=== PATIENT | female | born 1960 | race Caucasian/White ===

== ENCOUNTER 2020-10-13 21:55 | Emergency (ER) | payer MEDICARE, MEDICAID, SELFPAY ==
[2020-10-13 22:07] VITALS: BP 131/77; PULSE 84; RESP 16; TEMP 36.7; O2SAT 95; BMI 30.9
[2020-10-13 22:48] LABS: Glucose Urine UA NEG (NEG); Leukocyte Esterase Urine 1+ (NEG); Nitrite Urine NEG (NEG); PH 5.5 (5.0-8.0); Specific Gravity - Urine 1.025 (1.005-1.025); Urine Blood 1+ (NEG); Urine Ketones NEG (NEG); Urine Protein TRACE MG/DL (NEG-TRACE)
--- NOTE | 2020-10-13 22:49 | ED.NEUROSD ---
HPI - Neuro Symptoms/Deficit General Chief Complaint: Neuro Symptoms/Deficit Stated Complaint: seizures Time Seen by Provider: 10/13/20 22:34 Source: family (Brother) Mode of arrival: EMS History of Present Illness HPI Narrative: This is a 60-year-old female with cognitive delays and a seizure disorder, she has not had any recent changes in her medications or infections as per the brother who is at bedside. He states that earlier today she had a 10 minutes grand mal seizure and this gradually resolved and then EN route to the hospital he states she had a focal seizure which lasted about 2-3 minutes. He states that her recent history was a fall on Tuesday at which time she dislocated the left pinky finger which was reduced at [employer] [facility]. Related Data Allergies Allergy/AdvReac Type Severity Reaction Status Date / Time No Known Allergies Allergy Verified 10/13/20 22:22 [No Known Allergies*] Review of Systems Review of Systems: Pertinent positives and negatives as stated in HPI 10 point review systems is otherwise negative. PMFSH Past Medical History Source: nursing notes reviewed Medical History Seizures Social History Social History Advance Directives: No Advance Directives Information Provided: Yes Physical Exam Vital Signs: Vital Signs: Last Vital Signs Temp 98.0 F 10/13/20 22:07 Pulse 84 10/13/20 22:07 Resp 16 10/13/20 22:07 BP 131/77 10/13/20 22:07 Pulse Ox 95 10/13/20 22:07 Body Mass Index 30.9 VITAL SIGNS: Reviewed. GENERAL: Well developed, well nourished, in no acute distress. HEAD: Normocephalic/atraumatic, EYES: PERRLA, EOMI intact without pain, no nystagmus/pallor/icterus noted EARS: Ext canals without abnormality, TMs non-bulging and non-erythematous NOSE: Nares patent bilateral OROPHARYNX: no oral lesions noted, posterior pharynx clear, no oral/10 lacerations NECK: Supple, no adenopathy LUNGS: Normal breath sounds. No adventitious sounds or accessory muscle use. SpO2<95> CARDIOVASCULAR: Regular rate and rhythm without noted murmurs, no JVD or lower extremity edema. ABDOMEN: Soft, non-tender, non-distended with bowel sounds. No rigidity. No guarding. No palpable masses or hernias noted LEFT PINKY FINGER: Mildly bruised NEUROLOGIC: Alert and oriented x2 (this is baseline) Course Course Course Narrative: This is a 60-year-old female with history and clinical presentation consistent with breakthrough seizure and will evaluate for infectious, metabolic etiologies, but patient is currently at baseline as her brother. Review of all investigations all without any acute findings, 1+ leukocyte esterase noted in the urine is felt to be secondary to the mild blood noted. Patient has remained hemodynamically stable and without any seizure-like activity while here in the emergency department. All results and findings were discussed with patient's brother at bedside and he is comfortable with taking the patient home with follow-up in the morning regarding possible adjustments of medications/re-evaluation by Neurology. MDM - Neuro Symptoms/Deficit Lab Data Result diagrams: 10/14/20 00:18 10/14/20 00:18 Labs: Lab Results 10/13/20 10/13/20 10/14/20 Range/Units 22:38 22:38 00:18 WBC 7.4 (4.8-10.8) X10*3/uL RBC 4.54 (4.20-5.50) X10*6/uL Hgb 14.0 (12.0-16.0) g/dl Hct 41.5 (37-47) % MCV 91.4 (80-98) fL MCH 30.8 (27.0-33.0) pg MCHC 33.7 (31.0-35.0) g/dl RDW 12.7 (11.0-16.0) % Plt Count 210 (160-400) X10*3/uL MPV 9.4 (9.4-12.3) fL Immature Gran % (Auto) 0.5 H (0.0-0.4) % Neut % (Auto) 70.3 (45-73) % Lymph % (Auto) 18.9 L (20-40) % Sumner % (Auto) 8.5 (2-11) % Eos % (Auto) 1.4 (0-4) % Baso % (Auto) 0.4 (0-2) % Lymph # (Auto) 1.4 (1.2-4.9) X10*3/uL Sumner # (Auto) 0.6 (0.1-1.2) X10*3/uL Eos # (Auto) 0.1 (0.0-0.4) X10*3/uL Baso # (Auto) 0.0 (0.0-0.2) X10*3/uL Abs Immat Gran (auto) 0.04 H (0.00-0.03) X10*3/uL Absolute Neuts (auto) 5.2 (2.0-8.3) X10*3/uL Absolute Nucleated RBC 0.000 (0.0-0.012) X10*3/uL Nucleated RBC % (auto) 0.0 (0.0-0.2) /100WBC Sodium (135-145) mmol/L Potassium (3.3-5.1) mmol/l Chloride (96-108) mmol/L Carbon Dioxide (22-29) mmol/L Anion Gap (12-20) BUN (9-16) mg/dL Creatinine (0.5-1.4) mg/dL Estim Creat Clear Calc Estimated GFR Random Glucose (60-115) mg/dL Calcium (8.4-10.2) mg/dL Total Bilirubin (0.0-1.0) mg/dL AST (5-31) U/L ALT (0-31) U/L Alkaline Phosphatase (39-117) U/L Total Protein (6.5-8.0) g/dL Albumin (3.5-5.0) g/dL Urine Color YELLOW Urine Appearance CLEAR Urine pH 5.5 (5.0-8.0) Ur Specific [place] 1.025 (1.005-1.025) Urine Protein TRACE (NEG-TRACE) MG/DL Urine Glucose (UA) NEG (NEG) MG/DL Urine Ketones NEG (NEG) MG/DL Urine Blood 1+ H (NEG) Urine Nitrite NEG (NEG) Ur Leukocyte Esterase 1+ H (NEG) Urine RBC 1-4 (0) /HPF Urine WBC 1-4 (0-4) /HPF Ur Squamous Epith Cells 1+ /LPF Urine Bacteria 1+ /LPF Urine Opiates Screen Not Detected (Not Detect) Ur Barbiturates Screen Not Detected (Not Detect) Ur Phencyclidine Scrn Not Detected (Not Detect) Ur Amphetamines Screen Not Detected (Not Detect) U Benzodiazepines Scrn POSITIVE H (Not Detect) Urine Cocaine Screen Not Detected (Not Detect) U Marijuana (THC) Screen Not Detected (Not Detect) 10/14/20 Range/Units 00:18 WBC (4.8-10.8) X10*3/uL RBC (4.20-5.50) X10*6/uL Hgb (12.0-16.0) g/dl Hct (37-47) % MCV (80-98) fL MCH (27.0-33.0) pg MCHC (31.0-35.0) g/dl RDW (11.0-16.0) % Plt Count (160-400) X10*3/uL MPV (9.4-12.3) fL Immature Gran % (Auto) (0.0-0.4) % Neut % (Auto) (45-73) % Lymph % (Auto) (20-40) % Sumner % (Auto) (2-11) % Eos % (Auto) (0-4) % Baso % (Auto) (0-2) % Lymph # (Auto) (1.2-4.9) X10*3/uL Sumner # (Auto) (0.1-1.2) X10*3/uL Eos # (Auto) (0.0-0.4) X10*3/uL Baso # (Auto) (0.0-0.2) X10*3/uL Abs Immat Gran (auto) (0.00-0.03) X10*3/uL Absolute Neuts (auto) (2.0-8.3) X10*3/uL Absolute Nucleated RBC (0.0-0.012) X10*3/uL Nucleated RBC % (auto) (0.0-0.2) /100WBC Sodium 140 (135-145) mmol/L Potassium 4.2 (3.3-5.1) mmol/l Chloride 106 (96-108) mmol/L Carbon Dioxide 27 (22-29) mmol/L Anion Gap 11 L (12-20) BUN 12 (9-16) mg/dL Creatinine 0.81 (0.5-1.4) mg/dL Estim Creat Clear Calc 83.1 Estimated GFR > 60 Random Glucose 108 (60-115) mg/dL Calcium 8.8 (8.4-10.2) mg/dL Total Bilirubin 0.2 (0.0-1.0) mg/dL AST 24 (5-31) U/L ALT 23 (0-31) U/L Alkaline Phosphatase 85 (39-117) U/L Total Protein 6.7 (6.5-8.0) g/dL Albumin 4.5 (3.5-5.0) g/dL Urine Color Urine Appearance Urine pH (5.0-8.0) Ur Specific [place] (1.005-1.025) Urine Protein (NEG-TRACE) MG/DL Urine Glucose (UA) (NEG) MG/DL Urine Ketones (NEG) MG/DL Urine Blood (NEG) Urine Nitrite (NEG) Ur Leukocyte Esterase (NEG) Urine RBC (0) /HPF Urine WBC (0-4) /HPF Ur Squamous Epith Cells /LPF Urine Bacteria /LPF Urine Opiates Screen (Not Detect) Ur Barbiturates Screen (Not Detect) Ur Phencyclidine Scrn (Not Detect) Ur Amphetamines Screen (Not Detect) U Benzodiazepines Scrn (Not Detect) Urine Cocaine Screen (Not Detect) U Marijuana (THC) Screen (Not Detect) Discharge Plan Discharge Clinical Impression: Seizure Patient Disposition: Home, Self-Care Instructions: Nonepileptic Seizures (ED) Additional Instructions: Resume all home medications as prescribed. Follow-up with your primary care provider/urologist by calling the office in the morning for re-evaluation. The patient and/or family acknowledge understanding of results (as applicable), diagnosis, treatment plan, need for follow up, and symptoms that should prompt a return to the emergency room. Referrals: Physician,Unknown [Primary Care Provider] - 2 days (Re-evaluation and outpatient management seizures.)
[2020-10-13 22:50] LABS: Appearance Urine CLEAR; Color Urine YELLOW
--- NOTE | 2020-10-13 22:51 | XR_ITS ---
EXAMINATION: XR FINGER, LEFT CLINICAL INFORMATION: Fifth digit dislocation COMPARISON: None TECHNIQUE: 3 views of the left fifth finger. FINDINGS: There is a splint of the left fifth finger. There is no fracture. There is no dislocation. XR/XR finger LT min 2V IMPRESSION: No acute osseous abnormality of the fifth finger.
[2020-10-13 22:57] LABS: Bacteria Urine 1+ /LPF; Squamous Epithelial Cell Urine 1+ /LPF
[2020-10-13 23:25] LABS: Amphetamine Screen Urine Not Detected (Not Detect); Barbiturates, Urine Not Detected (Not Detect); Benzodiazepines Screen Urine POSITIVE (Not Detect); Cannabinoid Screen Urine Not Detected (Not Detect); Cocaine Screen Urine Not Detected (Not Detect); Opiate Screen Urine Not Detected (Not Detect); Phencyclidine Screen Urine Not Detected (Not Detect)
[2020-10-14 00:24] LABS: MANUAL DIFF FLAG NO
[2020-10-14 00:25] LABS: Basophils Percent Auto 0.4 % (0-2); Eosinophils Absolute Auto 0.1 X10*3/uL (0.0-0.4); Eosinophils Percent Auto 1.4 % (0-4); Hematocrit 41.5 % (37-47); Imm Gran Abs Auto 0.04 X10*3/uL (0.00-0.03); Imm Gran Pct Auto 0.5 % (0.0-0.4); Lymphocytes Absolute Auto 1.4 X10*3/uL (1.2-4.9); Lymphocytes Percent Auto 18.9 % (20-40); Mean Corpuscular HGB Conc 33.7 g/dl (31.0-35.0); Mean Corpuscular Hemoglobin 30.8 pg (27.0-33.0); Mean Corpuscular Volume 91.4 fL (80-98); Mean Platelet Volume 9.4 fL (9.4-12.3); Monocytes Absolute Auto 0.6 X10*3/uL (0.1-1.2); Monocytes Percent Auto 8.5 % (2-11); Neutrophils Absolute Auto 5.2 X10*3/uL (2.0-8.3); Neutrophils Percent Auto 70.3 % (45-73); Platelet Count 210 X10*3/uL (160-400); Red Blood Count 4.54 X10*6/uL (4.20-5.50); Red Cell Distribution Width 12.7 % (11.0-16.0); White Blood Count 7.4 X10*3/uL (4.8-10.8)
[2020-10-14 00:50] LABS: Alanine Aminotransferase 23 U/L (0-31); Albumin Level 4.5 g/dL (3.5-5.0); Alkaline Phosphatase 85 U/L (39-117); Anion Gap 11 (12-20); Aspartate Amino Transferase 24 U/L (5-31); Bilirubin Total 0.2 mg/dL (0.0-1.0); Blood Urea Nitrogen 12 mg/dL (9-16); Calcium 8.8 mg/dL (8.4-10.2); Carbon Dioxide 27 mmol/L (22-29); Chloride 106 mmol/L (96-108); Creatinine Clr Calc Pharmacy 83.1; Estimated Glomerular Filt Rate > 60; Glucose Random 108 mg/dL (60-115); Potassium 4.2 mmol/l (3.3-5.1); Sodium 140 mmol/L (135-145); Total Protein 6.7 g/dL (6.5-8.0)
== END 2020-10-14 01:45 | disposition home or self-care (01) ==
PROVIDERS: Emergency Provider Student in an Organized Health Care Education/Training Program
DX: G40.409 Other generalized epilepsy and epileptic syndromes, not intractable, without status epilepticus (principal); Z79.899 Other long term (current) drug therapy
CPT/HCPCS: 36415; 73140; 80053; 80307; 81001; 85025; 87086; 87147; 99283

== ENCOUNTER 2025-09-13 19:17 | Emergency (ER) | payer MEDICARE, MEDICAID, SELFPAY ==
--- NOTE | ~2025-09-13 | CT_ITS ---
CLINICAL HISTORY: Stroke Protocol CT Head Without Contrast: Comparison: None Findings: Cortical sulci are symmetric. Small calcified cortical granuloma is located in posterior parieto-occipital cortex. Basal ganglia are unremarkable. No shift in midline structures. No intraparenchymal bleeding or abnormal extra axial blood fluid collections. Normal pituitary size. Clear paranasal sinuses. Unremarkable orbital structures. No depressed fractures. Impression: Unremarkable CT of the head, no acute findings. ASPECTS score 10, NORMAL This document has been electronically signed by: Ochoa Lewis MD on 09/13/2025 19:43:01
--- NOTE | ~2025-09-13 | XR_ITS ---
CLINICAL HISTORY: Stroke Protocol 1 view chest x-ray. Comparison: None Findings: No consolidation. Heart size normal. No acute fracture. Impression: Lungs are clear This document has been electronically signed by: Ochoa Lewis MD on 09/13/2025 20:25:56
--- NOTE | ~2025-09-13 | CT_ITS ---
CLINICAL HISTORY: Stroke Protocol CTA HEAD, bolus contrast injection. 3D reconstructions and MPRs:: Comparison: None Findings: Right Carotid Siphon: No stenosis Right Anterior Cerebral Artery: A1 and A2 segments are unremarkable. There is peripheral cortical enhancement. Right Middle Cerebral Artery: M1 and M2 segments are unremarkable. There is peripheral cortical enhancement. Right Posterior Cerebral Artery: P1 and P2 segments are unremarkable. There is peripheral enhancement Left Carotid Siphon: Unremarkable Left Anterior Cerebral Artery: A1 and A2 segments are unremarkable. There is peripheral cortical enhancement. Left Middle Cerebral Artery: M1 and M2 segments are unremarkable. There is peripheral cortical enhancement. Left Posterior Cerebral Artery: P1 and P2 segments are unremarkable. There is peripheral cortical enhancement. Basilar Artery: Unremarkable. Superior cerebellar and left posterior inferior cerebellar arteries are perfused. Venous drainage: Normal Impression: No signs of aneurysm. No signs of arterial venous malformation. CTA Neck , Bolus contrast injection, 3D reconstructions and MPRs: Comparison: None Findings: Soft tissues of the neck are unremarkable Superior ascending aorta diameter is increased, for cm in diameter, and branch vessels are unremarkable Right carotid: No stenosis Right vertebral: No stenosis Left Carotid: No stenosis Left Vertebral: No stenosis Impression: No stenosis No carotid or vertebral aneurysm or dissection. Fusiform ascending aortic aneurysm is partially visualized. This document has been electronically signed by: Ochoa Lewis MD on 09/13/2025 20:10:18
--- NOTE | 2025-09-13 19:23 | ECG_ITS ---
Test Reason : Stroke Protocol Blood Pressure : */* mmHG Vent. Rate : 77 BPM Atrial Rate : 77 BPM P-R Int : 160 ms QRS Dur : 82 ms QT Int : 388 ms P-R-T Axes : 56 77 70 degrees QTcB Int : 439 ms Normal sinus rhythm Cannot rule out Inferior infarct , age undetermined Abnormal ECG No previous ECGs available Referred By: Viraj Gomez Electronically Signed By: FERNANDO BARROS
--- NOTE | 2025-09-13 19:23 | ED.NEUROSD ---
HPI - Neuro Symptoms/Deficit General Chief Complaint: Stroke Stated Complaint: Stroke Alert Time Seen by Provider: 09/13/25 19:23 Source: EMS and other (ironing worker) Mode of arrival: EMS Limitations: other (Clinical condition, development delay) History of Present Illness ED Provider: HPI Narrative: 65-year-old woman with a history of seizures on levetiracetam twice a day has not had a seizure in many years here with [employer] insurance, presenting via EMS, last well known time 06:55 patient started developing left-sided facial drooping, inability to elevate her left arm and left-sided hermelinda-neglect, EMS arrived in the scene, patient was not able to lift her left arm, [employer] insurance states her speech is different and patient is neglecting her left side, she is alert able to answer yes and no questions and follow commands. No reports of prior strokes, no reports of seizure, no report of recent trauma or history of GI bleeding. Blood pressure in route 174/110, point of care 120s. Related Data Allergies Allergy/AdvReac Type Severity Reaction Status Date / Time No Known Allergies (No Known Allergy Verified 09/13/25 19:27 Allergies*) Review of Systems Review of Systems: Yes Other (Limited due to medical condition) Constitutional: Constitutional: Reports as per HPI [facility] Past Medical History Medical History Seizures Social History Social History Advance Directives: No Advance Directives Information Provided: No Physical Exam Vital Signs: Vital Signs: Last Vital Signs Temp 97.6 F 09/13/25 20:37 Pulse 71 09/13/25 20:37 Resp 19 09/13/25 20:37 BP 133/76 09/13/25 20:37 Pulse Ox 94 09/13/25 20:37 O2 Del Method Room Air 09/13/25 20:37 BMI result Body Mass Index 42.4 Medications Administered Discontinued Medications Generic Name Dose Route Start Last Admin Trade Name Freq PRN Reason Stop Dose Admin Aspirin 324 mg 09/13/25 19:51 09/13/25 20:05 Aspirin 81 Mg Tab.Chew PO 09/13/25 19:52 324 mg ONCE ONE Administration Diazepam 2.5 mg 09/13/25 19:49 09/13/25 20:06 Diazepam 10 Mg/2 Ml Cartridge IVPUSH 09/13/25 19:50 2.5 mg STAT STA Administration Levetiracetam 3,000 mg/ Sodium 130 mls @ 520 mls/hr 09/13/25 19:49 09/13/25 20:42 Chloride IV 09/13/25 20:03 Infused ONCE ONE Infusion Iohexol 100 ml 09/13/25 19:29 09/13/25 19:30 Iohexol 350 Mg/Ml 100 Ml Infus..Btl IV 09/13/25 19:30 70 ml ONCE ONE Administration Medical Decision Making Medical Decision Making MDM Narrative: 7:32 PM 09/13/2025 (Dr. 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 Difficult to determine if she has any issues with phonation her diversional therapist's assistant states she does patient does have developmental delay. This is an you in significant change. On my exam she does have facial weakness on the left side, she was not able to see my fingers on the left side of the body and neglects the left side of the body, does not lift her left arm, able to lift her right leg and left leg. Neurology has been paged, awaiting for noncontrast CT results patient is a TNK candidate. Patient's brother is the guarding and he is on his way. 7:43 PM 09/13/2025 (Dr. Viraj Gomez): I spoke with Oscar and Radha brother and sister who are involved in patient's care and actually told me that this is fairly typical presentation with the patient has a seizure they if thought that she has had strokes in the past when she present like this, the last time this happened was about a year ago,at this time I was alos on the phone with Dr. Spence discussing this patient's presentation, we both agreed that the speech deficit did not make anatomic sense unless there was also basal vasculature involved he reviewed CT and CTA and that was unremarkable, and then I received a call from [facility] that CT without contrast was unremarkable. I have had a discussion with the patient's brother and sister brother at bedside and sister on the phone that we are going to administer levetiracetam as a loading dose small amount of benzodiazepine, we are going to hold off TNK, and patient will be admitted for further evaluation brain MRI, Dr. Spence recommended aspirin as well 7:55 PM 09/13/2025 (Dr. Viraj Gomez): I also spoke to patient's brother and patient's sister is her HCP, patient patient is back at her normal functional level and family would like to take the patient home.I discussed with them the recommendations but also this is happened in the past, and she is back at her baseline, they feel very comfortable of the medications which we will administer the patient and I do not feel that based on this history and return of her functionality there is indication for AMA 8:44 PM 09/13/2025 (Dr. Viraj Gomez): I met patient's sister, discussed fusiform ascending aortic aneurysm finding, as family is taking patient home I will document these finding and recommendation for follow up and monitoring, at the time of this note patient continues to be fully at her baseline. Full discussion with the family regarding workup including EKG, chest x-ray, blood work, CT head, CT angio head and neck, incidental findings and follow up Differential Diagnosis Differential Diagnoses: The differential diagnosis associated with the presentation includes (Stroke, bleed, Alejandro's paralysis, hyponatremia, hypoglycemia) Admission/Observation Consideration of admission/observation: Escalation of care including admission/observation considered Consult Healthcare Provider Management of the patient was discussed with: Adjunct Sociology Professor (Dr. Spence) Lab Data MDM Lab Attestation statement: I reviewed the patient's lab results. 09/13/25 20:04 09/13/25 20:04 Labs: Lab Results 09/13/25 Range/Units 20:04 WBC 5.5 (4.8-10.8) X10*3/uL RBC 4.61 (4.20-5.50) X10*6/uL Hgb 14.0 (12.0-16.0) g/dl Hct 41.1 (37.0-47.0) % MCV 89.2 (80.0-98.0) fL MCH 30.4 (27.0-33.0) pg MCHC 34.1 (31.0-35.0) g/dl RDW 12.4 (11.0-16.0) % Plt Count 212 (160-400) X10*3/uL MPV 9.4 (9.4-12.3) fL Immature Gran % (Auto) 0.4 (0.0-0.4) % Neut % (Auto) 58.9 (45-73) % Lymph % (Auto) 26.3 (20-40) % [place]ton % (Auto) 10.8 (2-11) % Eos % (Auto) 3.1 (0-4) % Baso % (Auto) 0.5 (0-2) % Lymph # (Auto) 1.4 (1.2-4.9) X10*3/uL [place]ton # (Auto) 0.6 (0.1-1.2) X10*3/uL Eos # (Auto) 0.2 (0.0-0.4) X10*3/uL Baso # (Auto) 0.0 (0.0-0.2) X10*3/uL Abs Immat Gran (auto) 0.02 (0.00-0.03) X10*3/uL Absolute Neuts (auto) 3.2 (2.0-8.3) x10*3/uL Absolute Nucleated RBC 0.000 (0.0-0.012) X10*3/uL Nucleated RBC % (auto) 0.0 (0.0-0.2) /100WBC PT 13.3 (11.2-13.5) SEC INR 1.1 (0.9-1.1) APTT 31.7 (26.7-34.1) SEC Sodium 140 (135-145) mmol/L Potassium 4.0 (3.3-5.1) mmol/L Chloride 105 (96-108) mmol/L Carbon Dioxide 25 (22-29) mmol/L Anion Gap 14 (12-20) BUN 17 H (9-16) mg/dL Creatinine 0.90 (0.5-1.4) mg/dL Estim Creat Clear Calc 35.8 Estimated GFR > 60 Random Glucose 124 H (60-115) mg/dL Calcium 9.6 D (8.4-10.2) mg/dL Triglycerides 254 H (<150) mg/dL Cholesterol 233 H (<200) mg/dL LDL Cholesterol, Calc 136 H (<100) mg/dL HDL Cholesterol 47 (>40) mg/dL Independent Interpretation I performed an independent interpretation of an: EKG (77 beats per minute otherwise normal ECG without dysrhythmia, AV stacy blocks or ST-T changes to suspect underlying ACS, my independent interpretation) and Plain X-Ray (My independent chest xray interpretation: Lungs: Lungs are clear bilaterally without evidence of focal consolidation, pleural effusion, or pneumothorax. Cardiac silhouette is unremarkable, no obvious mediastinal widening, no obvious bony abnormalities such as fractures. Impression: Normal chest X-r) Radiology Impression Discussion of test interpretation with radiology: I have reviewed the radiologist's reading. Independent Historian Clinical information obtained from an independent historian. History obtained from or confirmed by: EMS and Other (ironing worker) Discussions with family regarding further care Chronic Conditions Patient?s care impacted by: Other (Developmental delay) NIH Stroke Scale Time: 19:24 Level of Consciousness: Alert Level of Consciousness Questions: Answers one question correctly Level of Consciousness Commands: Performs both tasks correctly Best Gaze: Partial gaze palsy Visual: Complete hemianopia Facial Palsy: Partial paralysis Motor Arm (Right): No drift Motor Arm (Left): No effort against gravity Motor Leg (Right): No drift Motor Leg (Left): No drift Limb Ataxia: Present in one limb Sensory: Mild to moderate sensory loss Best Language: Mild to moderate aphasia Dysarthia: Mild to moderate dysarthria Extinction and Inattention: Profound hermelinda-inattention or extinction to more than one modality Score: 15 Critical Care Time Critical Care Time Critical Care Time: Yes Total Critical Care Time: 62 Attestation: Time is exclusive of separately billable procedures. Time includes: direct patient care, patient reassessment, coordination of patient care, interpretation of data (laboratory data, pulse oximetry, arterial blood gases and chest xrays), review of patient's medical records, medical consultation and documentation of patient care. Procedures excluded from critical care time: central intravenous line placement and electrocardiography. 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), Aortic aneurysm, thoracic Patient Disposition: Home, Self-Care Instructions: Ascending Thoracic Aortic Aneurysm (DC) Additional Instructions: Of note: Patient received 3000 mg of levetiracetam in the emergency department IV, she was loaded for the full day, do not administer any more levetiracetam tonight, you can administer all the other medications that she takes on regular basis otherwise She did receive 2.5 mg of intravenous Valium and 324 mg of aspirin according to neurologist recommendations Her workup has been largely reassuring blood work with some elevation of cholesterol and triglycerides that can be monitored by PCP It was noted that she has fusiform ascending aortic aneurysm see below, she will need outpatient study and follow up with either vascular surgeon or Cardiothoracic surgeon for monitoring, if she was being admitted I would have obtained CT angio of her chest but because she already received contrast would not able to administer contrast for another 12 hours at least If at any point she develops significant chest pain please return to ER right away, As discussed my initial recommendation was for admission however as patient's neurologic status has not improved, she has had this happened to her in the past, I felt comfortable with discharging her into your care, with of course consideration if anything else changes in your concerned to please bring her back to the ER for re-evaluation. I am providing you with a number for Dr. Kahlil Hadley group thoracic surgery for follow up please call make an appointment CT Findings: Soft tissues of the neck are unremarkable Superior ascending aorta diameter is increased, for cm in diameter, and branch vessels are unremarkable Right carotid: No stenosis Right vertebral: No stenosis Left Carotid: No stenosis Left Vertebral: No stenosis Impression: No stenosis No carotid or vertebral aneurysm or dissection. Fusiform ascending aortic aneurysm is partially visualized. Impression: Unremarkable CT of the head, no acute findings. Referrals: Mauro Guillory MD [Physician, Thoracic Surgery] Clinical Impression: Aortic aneurysm, thoracic Estuardo Baker NP [Primary Care Provider, Internal Medicine] - 1 week Clinical Impression: Aortic aneurysm, thoracic; Alejandro's paralysis (postepileptic) Print Language: [place]
[2025-09-13 19:25] VITALS: BMI 42.4
[2025-09-13] MEDS: iohexoL 350 MG/ML 100 ML INFUS..BTL IV (19:30)
[2025-09-13] MEDS: diazePAM 10 MG/2 ML CARTRIDGE 2.5 MG IVPUSH (20:06)
[2025-09-13 20:09] LABS: MANUAL DIFF FLAG NO
[2025-09-13 20:10] LABS: Hematocrit 41.1 % (37.0-47.0); Hemoglobin 14.0 g/dl (12.0-16.0); Imm Gran Abs Auto 0.02 X10*3/uL (0.00-0.03); Imm Gran Pct Auto 0.4 % (0.0-0.4); Lymphocytes Absolute Auto 1.4 X10*3/uL (1.2-4.9); Mean Corpuscular HGB Conc 34.1 g/dl (31.0-35.0); Mean Corpuscular Hemoglobin 30.4 pg (27.0-33.0); Mean Corpuscular Volume 89.2 fL (80.0-98.0); NRBC Abs Auto 0.000 X10*3/uL (0.0-0.012); NRBC Pct Auto 0.0 /100WBC (0.0-0.2); Platelet Count 212 X10*3/uL (160-400); Red Blood Count 4.61 X10*6/uL (4.20-5.50); White Blood Count 5.5 X10*3/uL (4.8-10.8)
--- OUTSIDE RECORDS SUMMARY | 2025-09-13 20:12 | XMS_ITS | Encounter Summary ---
Author Organization [facility] Address [address] [place] [address] [place] [address] Phone Care Team Providers Care Car Sealer Name Role Phone Bobby Rosenbaum Primary Care Provider [phone] Estuardo Baker CNP Primary Care Provider Encounter Details Date Type Department Care Team (Latest Contact Info) Description 09/18/2019 Transcribe Orders [address] [address] Pito Israel MD [address] [place] [address], [address] [place] [address] [email or web address] Memory loss (Primary Dx) Social History Tobacco Use Types Packs/Day Years Used Date Smoking Tobacco: Never Assessed Comments Unknown Sex and Gender Information Value Date Recorded Sex Assigned at Female 11/11/2021 2:43 PM EST Legal Sex Female 9:47 PM EDT Gender Identity Female 11/11/2021 2:43 PM EST Sexual Orientation Not on file documented as of this encounter Plan of Treatment Upcoming Encounters Date Type Department Care Team (Late st Contact Info) Description 08/07/2025 Procedure Pass [address] [place] [address] 04/21/2026 8:45 AM EDT Appointment [address] [place] [address] Estuardo Baker, SPRAY GUN REPAIRER [address] [facility], [address] [place] [address] [email or web address] documented as of this encounter Results * Vitamin B12 (09/18/2019 8:05 AM EST) VITAMIN B12 543 232 - 1,245 pg/mL [facility] Blood 09/18/2019 8:05 AM EST 09/18/2019 8:18 AM EST us Pito Israel MD LAB BLOOD BKR ORDERABLES Fin al Result Performing Organization Address [facility]/ZIP Co de Phone Number [address] [address] * Tissue transglutaminase IgA (09/18/2019 8:05 AM EST) Pathologist [facility] TTG IGA ANTIBODY <1.2 <4.0 (Negative) U/mL [facility] MED/PATH [address] Blood 09/18/2019 8:05 AM EST 09/18/2019 8:18 AM EST us Pito Israel MD LAB BLOOD BKR ORDERABLES Fin al Result Performing Organization Address [facility]/ZIP Co de Phone Number [facility] LAB MED/[address] [place] [address] * Syphilis antibody screen (09/18/2019 8:05 AM EST) Pathologist [facility] RPR NON-REACTIV E NON-REACTI VE [facility] Blood 09/18/2019 8:05 AM EST 09/18/2019 8:18 AM EST us Pito Israel MD LAB BLOOD BKR ORDERABLES Fin al Result Performing Organization Address [facility]/ZIP Co de Phone Number [address] [address] * Folate (09/18/2019 8:05 AM EST) FOLIC ACID 11.0 4.2 - 19.9 ng/mL [facility] Blood 09/18/2019 8:05 AM EST 09/18/2019 8:18 AM EST us Pito Israel MD LAB BLOOD BKR ORDERABLES Fin al Result Performing Organization Address City/[facility] Co de Phone Number [address] [address] * (ABNORMAL) TSH (09/18/2019 8:05 AM EST) TSH 6.51(H) 0.27 - 4.20 uIU/mL [facility] Blood 09/18/2019 8:05 AM EST 09/18/2019 8:18 AM EST us Pito Israel MD LAB BLOOD BKR ORDERABLES Fin al Result Performing Organization Address [facility] de Phone Number [address] [address] documented in this encounter Visit Diagnoses Diagnosis Memory loss- Primary documented in this encounter Care Teams Car Sealer Relationship Specialty Start Date End Date Bobby Rosenbaum DO PCP - General Internal Medicine 12/30/17 04/06/21 Estuardo Baker CNP [address] [place] [address], [address] [place] [address] PCP - General Family Medicine 04/07/21 documented as of this encounter Additional Source Comments The information contained in this document represents components of the legal health record. It is not the complete legal health record.[facility]
--- OUTSIDE RECORDS SUMMARY | 2025-09-13 20:12 | XMS_ITS | Clinical Summary ---
Author Organization [facility] Address [address] [place] [address] Phone Care Team Providers Care Keypunch Operator Name Role Phone Estuardo Baker Nakia PAPER CUTTER Primary Care Provider Allergies Active Allergy Reactions Criticality Noted Date Comments [id number]-Gt-Evehwcewuezrn Headaches 2 Medications sertraline (ZOLOFT) 100 MG tabletIndicati ons:Generalize d anxiety disorder Take 1 tablet (100 mg total) by mouth every morning. 90 tablet 3 05/02/20 25 Active lamoTRIgine (LAMICTAL) 100 MG IMMEDIATE release tabletIndicati ons:Seizure disorder Take 1 tablet (100 mg total) by mouth 2 (two) times a day. 180 tablet 3 05/02/20 25 Active lamoTRIgine (LAMICTAL) 200 MG IMMEDIATE release tabletIndicati ons:Seizure disorder Take 1 tablet (200 mg total) by mouth 2 (two) times a day. 180 tablet 3 05/02/20 25 Active levETIRAcetam (KEPPRA) 750 MG IMMEDIATE release tablet TAKE 2 TABLETS (1500MG TOTAL) BY MOUTH TWICE A DAY 112 tablet 2 08/30/20 25 Active lovastatin (MEVACOR) 10 MG tablet Take 1 tablet (10 mg total) by mouth every morning. 90 tablet 09/13/20 25 Active lovastatin (MEVACOR) 10 MG tabletIndicati ons:Hyperchole sterolemia Take 1 tablet (10 mg total) by mouth every morning. 90 tablet 3 06/12/20 25 025 Discontinued(Du plicate order) levETIRAcetam (KEPPRA) 750 MG IMMEDIATE release tablet Take 2 tablets (1,500 mg total) by mouth 2 (two) times a day. 360 tablet 06/20/20 25 025 Discontinued lovastatin (MEVACOR) 10 MG tablet Take 1 tablet (10 mg total) by mouth nightly at bedtime. 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 03/11 Family history of early CAD 04/07/2021 Global developmental delay 09/26/2018 Anxiety disorder 09/26/2018 History of herpes zoster 09/26/2018 Hypercholesterolemia 09/26/2018 Seizure disorder 09/26/2018 Encounters Date Type Department Care Team Description 09/12/[address] [place] [address] Estuardo Baker CNP Medication Refill 09/11/[address] [place] [address] Veena Bullock MA Forms & Paperwork ([place] ) 09/09/[address] [place] [address] Estuardo Baker CNP Forms & Paperwork 08/30/[address] [place] [address] Estuardo Baker CNP Medication Refill 08/28/[address] [facility] [address] [place] [address] Gracia Erwin Medication Management (lovastatin ) 08/06/[address] [facility] [address] [place] [address] Gracia Erwin Breast Cancer Screening 08/02/[address] [facility] [address] [place] [address] Yaima, Gracia Flu Vaccine 07/18/[address] [place] [address] Dixie Avendaño MA [employer] Support & Protective Devices 07/12/[address] [place] [address] Estuardo Baker CNP Medication Refill (Lovastatin + [facility]) 07/08/[address] [place] [address] Estuardo Baker CNP Referral (Hearing test) 07/05/[address] [place] [address] Carmen Holliday LPN Forms & Paperwork (Medication Treatment Plan) 07/04/[address] [place] [address] Esturado Baker CNP Certification of Health Care Provider 06/26/[address] [place] [address] Estuardo Baker CNP Request For Records 06/25/[address] [place] [address] Estuardo Baker CNP Forms & Paperwork 06/21/[address] [place] [address] Estuardo Baker CNP Medication Problem from Last 3 Months Immunizations Immunization Administration Dates Next Due COVID-19 (Pre-08/01) Moderna Vaccine, mRNA, PF 11/11/2021,11/15/2020 INFLUENZA, SPLIT VIRUS, TRIVALENT PF 11/20/2016 Influenza A Monovalent (H5n1 ), Adjuvanted-201207/28/2009 Influenza Quadrivalent Preservative Free IM 10/12/2022,09/12/2021,09/25/2010 Influenza Quadrivalent w/ Preservative IM 2019,05/23/2018 PPD Test 06/03/2010 Pneumococcal conjugate PCV13 11/20/2016 Pneumococcal conjugate PCV20 05/02/2025 Tdap 03/25/2022 Family History Medical History Relation Comments Coronary artery disease Brother stents Dyslexia Brother Diabetes Father Heart disease Father Heart disease Mother Anxiety disorder Sister Coronary artery disease Sister stents Diabetes Sister Relation Status Comments Brother Alive Father Mother Sister Alive Social History Tobacco Use Types Packs/Day Years Used Date Smoking Tobacco: Never Smokeless Tobacco: Never Tobacco Cessation:Counseling Given: Not Answered Alcohol Use Standard Drinks/Week Comments Never 0 (1 standard drink = 0.6 oz pur e alcohol) Child or Family Care Answer Date Record ed Do you have problems with on e of the following making it difficult for you to work, study, or receive health care? No 04/07/2021 Education Answer Date Recorded Are you interested in more education? Not on jackie e 04/18/2023 Are you concerned about learning? Not on file 04/18/2023 No 04/18/2023 No 04/18/2023 Food Answer Date Recorded Within the past 6 months we worried whether our food would run out before we got money to buy more. Never True 04/07/2021 Within the past 6 months the food we bought just didn't last and we didn't have enough money to get more. Never True Residential Stability Answer Date Recor ded What is your housing situation today? I have roberto sing 04/07/2021 How many times have you move d in the past 12 months? Zero (I did not move) 04/07/2021 Paying for Meds Answer Date Recorded Do you have trouble paying for medicines? No 04/07/2021 Paying Utility Bills Answer Date Record ed Do you have trouble paying your heating or elect ricity bill? No 04/07/2021 Transportation Answer Date Recorded Has the lack of transportati on kept you from medical appointments or from getting medications? No 04/07/2021 Unemployment Answer Date Recorded Are you currently unemployed or working on a part-time or temporary basis, and looking for work? No 04/07/2021 Digital Access Answer Date Recorded No 03/07/2023 No 03/07/2023 Reliable internet access at home? Not on file 03/07/2023 Device with a working camera? Not on file Intimate Partner Violence Answer Date R ecorded Are you denied basic needs s uch as food, clothing, or medical care? Patient unable to respond 04/25/2025 In the past 12 months have y ou been in a relationship with a person who hurts, threatens, or tries to control you? No 04/25/2025 Are you denied basic needs s uch as food, clothing, or medical care? Patient unable to respond 04/25/2025 In the past 12 months have y ou been in a relationship with a person who hurts, threatens, or tries to control you? No 04/25/2025 Comments Unknown Sex and Gender Information Value Date Recorded Sex Assigned at Female 11/11/2021 2:43 PM EST Legal Sex Female 9:47 PM EDT Gender Identity Female 11/11/2021 2:43 PM EST Sexual Orientation Not on file Occupation Industry Job Start Date Job End Date [employer] Not on file Not on jackie e Not on file Last Filed Vital Signs Vital Sign Reading Time Taken Comments Blood Pressure 138/74 05/02/2025 3:21 PM EDT Pulse 74 05/02/2025 3:21 PM EDT Temperature 36.2 C (97.2 F) 05/02/2025 3:21 PM EDT Respiratory Rate 20 01/02/2025 11:50 PM EDT Oxygen Saturation 98% 05/02/2025 3:21 PM EDT Inhaled Oxygen Concentration - - Weight 63.5 kg (140 lb) 05/02/2025 3:21 PM EDT Height 157 cm (5' 1.81 ) 05/02/2025 3:21 PM EDT Body Mass Index 25.76 05/02/2025 3:21 PM EDT Plan of Treatment Upcoming Encounters Date Type Department Care Team (Late st Contact Info) Description 08/07/2025 Procedure Pass [address] [place] [address] 04/21/2026 8:45 AM EDT Appointment [address] [place] [address] Estuardo Baker, PAPER CUTTER [address] [place] [address], [address] [place] [address] [email or web address] Health Maintenance Due Date Last Done Comments PAP SMEAR 1982 MAMMOGRAM 2001 COLOGUARD 2006 COLONOSCOPY 2006 COLORECTAL CANCER SCREENING 2006 FIT TEST 2006 FOBT 2006 SIGMOIDOSCOPY 2006 VIRTUAL COLONOSCOPY 2006 ZOSTER VACCINES (1 of 2) 2011 INFLUENZA VACCINE (#1) 2025 , 09/12/2021, 07/29/2020, Additional history exists COVID-19 VACCINE (2024- season) 2025 11/11/2021, 12/13/2020, 11/15/2020 DEPRESSION SCREENING 04/25/2026 04/25/2025 SCREENING FOR DIABETES 05/21/2027 05/21/2024, 2023 LIPID PANEL 04/19/2029 04/19/2024, 04/09, 12/10/2021, Additional history exists Adult Td,Tdap Booster 03/25/2032 03/25/2022 RSV VACCINE (1 - 1-dose 75+ series) 2036 HEPATITIS C SCREENING Completed 12/10/2021 HIV ONE-TIME SCREENING (18-65 YEARS) Completed 12/10/2021 SMOKING STATUS SCREENING (Once After 26 Yrs) Completed 04/19/2024 PNEUMOCOCCAL VACCINES (50+ years) Completed 05/02/2025, 11/20/2016 HEPATITIS A VACCINES Aged Out No long er eligible based on patient's age to complete this topic HIB VACCINES Aged Out No longer eligi ble based on patient's age to complete this topic MENINGOCOCCAL VACCINES (ACWY) Aged Out No longer eligible based on patient's age to complete this topic MENINGOCOCCAL VACCINES (B) Aged Out N o longer eligible based on patient's age to complete this topic Medical Devices Not on file Procedures Procedure Name Priority Date/Time Associated Diagnosis Comments LIPID PANEL Routine 04/19/2024 3:14 PM EDT Hypercholesterolemi a HEPATITIS C ANTIBODY, QUALITATIVE Routine 12/10/2021 8:15 AM EST Need for hepatitis C screening test from Last 3 Months or Most Recently Relevant to Health Maintenance Results * (ABNORMAL) Lipid panel (04/19/2024 3:14 PM EDT) HDL 54 mg/dL [facility] Comment: Interpretation <40 mg/dL: Low HDL cholesterol (major risk factor for CHD) Greater than or equal to 60 mg/dL: High HDL cholesterol ( negative risk factor for CHD) HDL - cholesterol is affected by a number of factors, e.g. smoking, excerise, hormones, sex and age. CHOLESTEROL 228 0 - 240 mg/dL [facility] TRIGLYCERIDES 403(H) 30 - 160 mg/dL [facility] LDL NOT CALCULATED 50 - 129 mg/dL [facility] Comment: Unable to calculate due to elevated TRIG of greater than 400. A measured LDL will be performed. CARDIAC RISK RATIO 4.2 3.3 - 4.4 [facility] Blood 04/19/2024 3:14 PM EDT 04/19/2024 3:22 PM EDT us Estuardo Baker [facility] LAB BLOOD BKR ORDERABL ES Final Result Performing Organization Address [facility] Co de Phone Number [address] [address] * Hepatitis C antibody, qualitative (12/10/2021 8:15 AM EST) HCV NON-REACTIV E NON-REACTI VE [facility] Blood 12/10/2021 8:15 AM EST 12/10/2021 8:21 AM EST us Estuardo Baker [facility] LAB BLOOD BKR ORDERABL ES Final Result Performing Organization Address [facility] Co de Phone Number [address] [address] from Last 3 Months or Most Recently Relevant to Health Maintenance Insurance MEDICARE PART A & B [facility] MEDICARE PART A & B [facility] MEDICARE PART A & B Member Subscriber Plan / Payer (Ef fective 1996-) Name:Hoda Wang Member ID:[id number] Relation to Subscriber:Self Name:Hdoa Wang Subscriber ID:[id number] Payer ID:[id number] Group ID:Not on file Type:Medicare Address: [employer] & B [place] & B [facility] MEDIC[facility] PART A & B [facility] MEDIC[facility] PART A & B [facility] MEDICARE PART A & B [facility] MEDICARE PART A & B [facility] Care Teams Keypunch Operator Relationship Specialty Start Date End Date Estuardo Baker CNP [address] [place] [address], [address] [place] [address] PCP - General Family Medicine 04/07/21 Additional Source Comments The information contained in this document represents components of the legal health record. It is not the complete legal health record.[facility]
--- OUTSIDE RECORDS SUMMARY | 2025-09-13 20:12 | XMS_ITS | Encounter Summary ---
Author Organization [facility] Address [address] [place] [address] Phone Care Team Providers Care Supervisor Payroll Name Role Phone Bobby oRsenbaum DO Primary Care Provider [phone] Estuardo Baker CNP Primary Care Provider Encounter Details Date Type Department Care Team (Late st Contact Info) Description 09/18/2019 Transcribe Orders [address] [place] [address] Bobby Rosenbaum DO [address] [facility] [place] [address] [place] [address] [email or web address] Pure hypercholesterolemia (Primary Dx) Social History Tobacco Use Types [...] Contact Info) Description 08/07/2025 Procedure Pass [address] [place] [address] 04/21/2026 8:45 AM EDT Appointment [address] [place] [address] Estuardo Baker, MILK DRIER [address] [facility], [address] [place] [address] [email or web address] documented as of this encounter Results * CBC (09/18/2019 8:05 AM EST) WBC 5.32 3.40 - 11.20 K/uL [facility] RBC 4.63 3.80 - 4.80 M/uL [facility] HGB 14.0 12.0 - 15.0 g/dL [facility] HCT 41.0 36.0 - 46.0 % [facility] PLT 216 130 - 400 K/uL [facility] MCV 88.6 79.0 - 98.0 fL [facility] MCH 30.2 27.0 - 34.8 pg [facility] MCHC 34.1 31.5 - 36.0 g/dL [facility] RDW 13.0 10.8 - 14.6 % [facility] MPV 9.6 9.4 - 12.4 fl [facility] NRBC 0.00 0.00 /100 WBCs [facility] ABSOLUTE NRBC 0.00 0.00 K/uL [facility] Blood 09/18/2019 8:05 AM EST 09/18/2019 8:18 AM EST us Bobby A Bigda DO LAB BLOOD BKR ORDERABLES Final R esult [facility] [address] [place] [address] * (ABNORMAL) Comprehensive metabolic panel (09/18/2019 8:05 AM EST) SODIUM 143 133 - 146 mmol/L [facility] POTASSIUM 4.1 3.3 - 5.1 mmol/L [facility] CHLORIDE 105 96 - 108 mmol/L [facility] CO2 24 21 - 35 mmol/L [facility] BUN 11 6 - 19 mg/dL [facility] CREATININE 0.70 0.5 - 1.5 mg/dL [facility] GLUCOSE 112(H) 70 - 99 mg/dL [facility] ALBUMIN 4.5 3.9 - 4.8 g/dL [facility] TOTAL PROTEIN 7.2 6.5 - 8.0 g/dL [facility] CALCIUM 9.6 8.4 - 10.3 mg/dL [facility] ALKALINE PHOSPHATASE 94 39 - 117 U/L [facility] TOTAL BILIRUBIN 0.3 0.0 - 1.2 mg/dL [facility] AST 23 0 - 37 U/L [facility] ALT 22 0 - 40 U/L [facility] GLOBULIN 2.7 1 - 4.8 g/dL [facility] EGFR 96 >59 mL/min/1.7 3m2 [facility] Comment:If patient is black, multiply result by 1.159. Estimated glomerular filtration rate calculated using the CKD-EPI equation. ANION GAP 18 10 - 20 mmol/L [facility] Blood 09/18/2019 8:05 AM EST 09/18/2019 8:18 AM EST us Bobby Liv Rosenbaum DO LAB BLOOD BKR ORDERABLES Final R esult [facility] [address] [place] [address] * (ABNORMAL) Lipid panel (09/18/2019 8:05 AM EST) HDL 59 mg/dL [facility] Comment: Interpretation <40 mg/dL: Low HDL cholesterol (major risk factor for CHD) Greater than or equal to 60 mg/dL: High HDL cholesterol ( negative risk factor for CHD) HDL - cholesterol is affected by a number of factors, e.g. smoking, excerise, hormones, sex and age. CHOLESTEROL 236 0 - 240 mg/dL [facility] TRIGLYCERIDES 179(H) 30 - 160 mg/dL [facility] LDL 141(H) 50 - 129 mg/dL [facility] Comment: LDL levels in terms of risk for coronary heart disease: <100 mg/dL: Optimal 100-129 mg/dL: Near or above optimal 130-159 mg/dL: Borderline high 160-189 mg/dL: High >190 mg/dL: Very High CARDIAC RISK RATIO 4.0 3.3 - 4.4 [facility] Blood 09/18/2019 8:05 AM EST 09/18/2019 8:18 AM EST us Bobby Rosenbaum DO LAB BLOOD BKR ORDERABLES Final R esult [facility] [address] [place] [address] documented in this encounter Visit Diagnoses Diagnosis Pure hypercholesterolemia- Primary documented in this encounter Care Teams Supervisor Payroll Relationship Specialty Start Date End Date Bobby Rosenbaum DO PCP - General Internal Medicine 12/30/17 04/06/21 Estuardo Baker CNP [address] [place] [address], [address] [place] [address] PCP - General Family Medicine 04/07/21 documented as of this encounter Additional Source Comments The information contained in this document represents components of the legal health record. It is not the complete legal health record.[facility]
--- OUTSIDE RECORDS SUMMARY | 2025-09-13 20:12 | XMS_ITS | Encounter Summary ---
Author Organization [facility] Address [address] [address] [place] [address] Phone Care Team Providers Care Edger Saw Operator Name Role Phone BakerEstuardo andrade Nakia [place] Primary Care Provider Reason for Visit * Reason Onset Date Comments Forms & Paperwork 09/11/2025 [place] Encounter Details Date Type Department Care Team ([facility] st Contact Info) Description 09/11/2025 Telephone [facility] [address] [place], [place] [phone] Veena Bullock MA [address] [place] [address] Forms & Paperwork ([place] ) Social History Tobacco Use Types Packs/Day Years Used Date Smoking Tobacco: Never Smokeless Tobacco: Never Alcohol Use Standard Drinks/Week Comments Never 0 [...] your housing situation today? I have roberto coy 04/07/2021 How many times have you move [...] Industry Job Start Date Job End Date [employer] Not on file Not on jackie e Not on file documented as of this encounter Progress Notes * Kira Powell MA - 09/12/2025 4:04 PM EST Signed and faxed to [phone]. Confirmation received @ 3:39 PM Scan to the chart. * Veena Bullock MA - 09/11/2025 10:30 AM EST Received request for updated seizure protocol. Forms placed in provider basket for signature. documented in this encounter Plan of Treatment Upcoming Encounters Date Type Department Care Team (Late st Contact Info) Description 08/07/2025 Procedure Pass [address] [place] [address] 04/21/2026 8:45 AM EDT Appointment [address] [place] [address] Estuardo Baker CNP [address] [place] [address], [address] [place] [address] [email or web address] documented as of this encounter Visit Diagnoses Not on filedocumented in this encounter Additional Health Concerns Assessment Noted Time PHQ-2 Depression Total Score: 0 04/25/20 25 8:46 PM EDT documented as of this encounter Care Teams Edger Saw Operator Relationship Specialty Start Date End Date Estuardo Baker CNP [address] [place] [address], [address] [place] [address] PCP - General Family Medicine 04/07/21 documented as of this encounter Additional Source Comments The information contained in this document represents components of the legal health record. It is not the complete legal health record.[facility]
--- OUTSIDE RECORDS SUMMARY | 2025-09-13 20:12 | XMS_ITS | Encounter Summary ---
Author Organization [facility] Address [address] [place] [address] Phone Care Team Providers Care Alcohol Rubber Name Role Phone Bobby Rosenbaum DO Primary Care Provider [phone] Estuardo Baker CNP Primary Care Provider Encounter Details Date Type Department Care Team (Late st Contact Info) Description 09/19/2018 Transcribe Orders [address] [place] [address] Bobby Rosenbaum DO [address] [facility] [place] [address] [place] [address] Pure hypercholesterolemia (Primary Dx); Special sensory attacks Social History Tobacco Use Types Packs/Day Years [...] st Contact Info) Description 08/07/2025 Procedure Pass [address] [place] [address] 04/21/2026 8:45 AM EDT Appointment [address] [place] [address] Estuardo Ruano, BANK MESSENGER [address] [facility], [address] [place] [address] [email or web address] documented as of this encounter Results * Homocysteine (09/19/2018 8:09 AM EST) HOMOCYSTEINE,TOTAL 9 <=13 (Fasting) MCMOL/L [facility] DPT OF LAB MED AND PAT+ Comment: (NOTE) ADDITIONAL INFORMATION This test was developed and its performance characteristics determined by [facility] in a manner consistent with CLIA requirements. This test has not been cleared or approved by the U.S. Food and Drug Administration. Blood 09/19/2018 8:09 AM EST 09/19/2018 9:53 AM EST us Bobby A Bigda DO LAB BLOOD BKR ORDERABLES Final R esult [facility] DPT OF LAB MED AND PAT+ [address] [place] [address] * C-Reactive Protein (09/19/2018 8:09 AM EST) Pathologist [facility] C REACTIVE PROTEIN 3.6 0.0 - 4.0 mg/L [facility] Blood 09/19/2018 8:09 AM EST 09/19/2018 9:53 AM EST us Bobby A Bigda DO LAB BLOOD BKR ORDERABLES Final R esult [facility] [address] [place], [place] [id number] * Lamotrigine level (09/19/2018 8:09 AM EST) LAMOTRIGINE 11.1 2.5 - 15.0 mcg/mL [facility]PATH SUPERIOR JUNG Comment: (NOTE) ADDITIONAL INFORMATION This test was developed and its performance characteristics determined by [facility] in a manner consistent with CLIA requirements. This test has not been cleared or approved by the U.S. Food and Drug Administration. Blood 09/19/2018 8:09 AM EST 09/19/2018 9:53 AM EST us Bobby A Bigda DO LAB BLOOD BKR ORDERABLES Final R esult Performing Organization Address [facility] Co de Phone Number [facility]PATH [address] [place] [address] * Levetiracetam (Keppra) level (09/19/2018 8:09 AM EST) LEVETIRACETAM 36.8 12.0 - 46.0 mcg/mL [facility]PATH SUPERIOR Comment: (NOTE) ADDITIONAL INFORMATION This test was developed and its performance characteristics determined by [facility] in a manner consistent with CLIA requirements. This test has not been cleared or approved by the U.S. Food and Drug Administration. Blood 09/19/2018 8:09 AM EST 09/19/2018 9:53 AM EST Bobby A Ilsa DO LAB BLOOD BKR ORDERABLES Final R esult Performing Organization Address [facility]/ZIP Co de Phone Number [facility] LAB [facility]/PATH SU[address] [place] [place] [id number] * (ABNORMAL) Lipid panel (09/19/2018 8:09 AM EST) HDL 53 mg/dL [facility] Comment: Interpretation <40 mg/dL: Low HDL cholesterol (major risk factor for CHD) Greater than or equal to 60 mg/dL: High HDL cholesterol ( negative risk factor for CHD) HDL - cholesterol is affected by a number of factors, e.g. smoking, excerise, hormones, sex and age. CHOLESTEROL 218 0 - 240 mg/dL [facility] TRIGLYCERIDES 170(H) 30 - 160 mg/dL [facility] LDL 131(H) 50 - 129 mg/dL [facility] Comment: LDL levels in terms of risk for coronary heart disease: <100 mg/dL: Optimal 100-129 mg/dL: Near or above optimal 130-159 mg/dL: Borderline high 160-189 mg/dL: High >190 mg/dL: Very High CARDIAC RISK RATIO 4.1 3.3 - 4.4 C [facility] Blood 09/19/2018 8:09 AM EST 09/19/2018 9:53 AM EST us Bobby Rosenbaum DO LAB BLOOD BKR ORDERABLES Final R esult [facility] [address] [place], [place] [id number] * (ABNORMAL) Comprehensive metabolic panel (09/19/2018 8:09 AM EST) SODIUM 143 133 - 146 mmol/L [facility] POTASSIUM 3.9 3.3 - 5.1 mmol/L [facility] CHLORIDE 106 96 - 108 mmol/L [facility] CO2 25 21 - 35 mmol/L [facility] BUN 8 6 - 19 mg/dL [facility] CREATININE 0.70 0.5 - 1.5 mg/dL [facility] GLUCOSE 102(H) 70 - 99 mg/dL [facility] ALBUMIN 4.4 3.9 - 4.8 g/dL [facility] TOTAL PROTEIN 6.7 6.5 - 8.0 g/dL [facility] CALCIUM 8.9 8.4 - 10.3 mg/dL [facility] ALKALINE PHOSPHATASE 82 39 - 117 U/L [facility] TOTAL BILIRUBIN 0.2 0.0 - 1.2 mg/dL [facility] AST 25 0 - 37 U/L [facility] ALT 17 0 - 40 U/L [facility] GLOBULIN 2.3 1 - 4.8 g/dL [facility] EGFR 96 >59 mL/min/1.7 3m2 [facility] Comment:If patient is black, multiply result by 1.159. Estimated glomerular filtration rate calculated using the CKD-EPI equation. ANION GAP 16 10 - 20 mmol/L [facility] Blood 09/19/2018 8:09 AM EST 09/19/2018 9:53 AM EST us Bobby Rosenbaum DO LAB BLOOD BKR ORDERABLES Final R esult [facility] [address] [place] [address] documented in this encounter Visit Diagnoses Diagnosis Pure hypercholesterolemia- Primary Special sensory attacks Other convulsions documented in this encounter Care Teams Alcohol Rubber Relationship Specialty Start Date End Date Bobby Rosenbaum DO PCP - General Internal Medicine 12/30/17 04/06/21 Estuardo Baker CNP [address] [place] [address], [address] [place] [address] PCP - General Family Medicine 04/07/21 documented as of this encounter Additional Source Comments The information contained in this document represents components of the legal health record. It is not the complete legal health record.[facility]
--- OUTSIDE RECORDS SUMMARY | 2025-09-13 20:12 | XMS_ITS | Encounter Summary ---
Author Organization Located Within [facility] Address [address] [place] [address] Phone Care Team Providers Care Art Museum Aide Name Role Phone Bobby Rosenbaum Primary Care Provider [phone] Estuardo Baker CNP Primary Care Provider Reason for Referral * MRI/CAT Scan - Closed Specialty Diagnoses / Procedures Referred By Ros brock Referred To Contact Radiology Diagnoses Focal seizure Procedures MRI Brain Pito Israel MD Phone: tel: fax: [email or web address] Referral ID Status Reason Start Date Expiration Date Visits Re quested Visits Authorized [id number] Closed 12/28/2019 12/27/2020 1 1 Encounter Details Date Type Department Care Team (Latest Contact Info) Description 12/28/2019 Transcribe Orders Virtual Department [address] [place] [address] Pito Israel MD [address] [place] [address], [address] [place], [place] [id number] [email or web address] TIA (transient ischemic attack) (Primary Dx); Focal seizure Social History Tobacco Use Types Packs/Day Years [...] st Contact Info) Description 08/07/2025 Procedure Pass [address] [place] [address] 04/21/2026 8:45 AM EDT Appointment [address] [place], [place] [address] Estuardo Baker, FINISH OPENER [address] [facility], [address] [place], [place] [phone] documented as of this encounter Results * US Carotid Duplex Complete (Bilateral) (04/01/2020 9:20 AM EDT) Anatomical Region Laterality Modality Heart, Thoracic Vasculature, Neck Ultrasound 04/01/2020 9:40 AM EDT Impressions 04/01/2020 9:46 AM EDT No arterial plaque or hemodynamically significant stenosis in the extracranial carotid arteries. Normal antegrade blood flow in the vertebral arteries. POS- [id number] Narrative 04/01/2020 9:46 AM EDT EXAM: US CAROTID DUPLEX COMPLETE (BILATERAL) HISTORY: Transient ischemic attack. Seizures. TECHNIQUE: Grayscale, color Doppler and spectral Doppler ultrasound imaging of the extracranial carotid arterial system. COMPARISON: None. FINDINGS: RIGHT: Carotid artery morphology: No visible plaque. Internal carotid artery courses deep in the soft tissues of the neck. Peak systolic velocity in the RIGHT ICA is 108 cm/sec. Peak systolic velocity in the RIGHT CCA is 82 cm/sec. ICA/CCA peak systolic velocity ratio is 1.3. No hemodynamically significant stenosis. Vertebral artery: Normal antegrade blood flow. LEFT: Carotid artery morphology: No visible plaque. Internal carotid artery courses deep in the soft tissues of the neck. Peak systolic velocity in the LEFT ICA is 114 cm/sec. Peak systolic velocity in the LEFT CCA is 97 cm/sec. ICA/CCA ratio peak systolic velocity ratio is 1.2. No hemodynamically significant stenosis. Vertebral artery: Normal antegrade blood flow. Any stenosis measurement is relative to the distal ICA diameters. Procedure Note Aidee Alfredo MD - 04/01/2020 EXAM: US CAROTID DUPLEX COMPLETE (BILATERAL) HISTORY: Transient ischemic attack. Seizures. TECHNIQUE: Grayscale, color Doppler and spectral Doppler ultrasoundimaging of the extracranial carotid arterial system. COMPARISON: None. FINDINGS: RIGHT: Carotid artery morphology: No visible plaque. Internal carotid arterycourses deep in the soft tissues of the neck. Peak systolic velocity in the RIGHT ICA is 108 cm/sec. Peak systolicvelocity in the RIGHT CCA is 82 cm/sec. ICA/CCA peak systolic velocityratio is 1.3. No hemodynamically significant stenosis. Vertebral artery: Normal antegrade blood flow. LEFT: Carotid artery morphology: No visible plaque. Internal carotid arterycourses deep in the soft tissues of the neck. Peak systolic velocity in the LEFT ICA is 114 cm/sec. Peak systolicvelocity in the LEFT CCA is 97 cm/sec. ICA/CCA ratio peak systolicvelocity ratio is 1.2. No hemodynamically significant stenosis. Vertebral artery: Normal antegrade blood flow. Any stenosis measurement is relative to the distal ICA diameters. IMPRESSION: No arterial plaque or hemodynamically significant stenosis in theextracranial carotid arteries. Normal antegrade blood flow in the vertebral arteries. POS- [id number] us Pito Israel MD CV US NEUROVASCULAR Final Re sult * MRI BRAIN WITHOUT CONTRAST (04/01/2020 8:28 AM EDT) Anatomical Region Laterality Modality Head Magnetic Resonan ce 04/01/2020 8:53 AM EDT Impressions 04/01/2020 9:06 AM EDT 1. Patient only able to tolerate sagittal T1 and axial DWI sequences. Severely limited study. 2. No abnormal diffusion restriction. No midline shift or mass effect. 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 ?Beginning of this year developed focal seizures requiring medication. ? COMPARISON: 02/28/[address] TECHNIQUE: MRI brain without contrast. Patient only able to tolerate the following sequences: Sagittal T1, axial DWI with ADC map. None of the other sequences could be obtained. MRI HEAD FINDINGS: There is no signal abnormality on the diffusion-weighted sequence. No acute or subacute ischemia. Based solely on the sagittal T1 and axial DWI sequences which the patient could tolerate, no midline shift or mass effect. Diffuse prominence of the extra-axial spaces from mild volume loss, unchanged compared with 02/08/[address] The cerebellar tonsils are normal in position. Degenerative disc narrowing seen at C3-C4, C4-C5 with endplate marginal spurring. 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 ? COMPARISON: 02/28/[address] TECHNIQUE: MRI brain without contrast. Patient only able to tolerate thefollowing sequences: Sagittal T1, axial DWI with ADC map. None of theother sequences could be obtained. MRI HEAD FINDINGS: There is no signal abnormality on the diffusion-weighted sequence. Noacute or subacute ischemia. Based solely on the sagittal T1 and axial DWIsequences which the patient could tolerate, no midline shift or masseffect. Diffuse prominence of the extra-axial spaces from mild volumeloss, unchanged compared with 02/08/[address] The cerebellar tonsilsare normal in position. Degenerative disc narrowing seen at C3-C4, C4-C5 with endplate marginalspurring. IMPRESSION: 1. Patient only able to tolerate sagittal T1 and axial DWI sequences.Severely limited study. 2. No abnormal diffusion restriction. No midline shift or mass effect. POS - [id number] Pito Israel MD IMG MR HEAD/NECK Final Resul t documented in this encounter Visit Diagnoses Diagnosis TIA (transient ischemic attack)- Primary Unspecified transient cerebral ischemia Focal seizure Other convulsions TIA (transient ischemic attack) Unspecified transient cerebral ischemia Focal seizure Other convulsions documented in this encounter Care Teams Art Museum Aide Relationship Specialty Start Date End Date Bobby Rosenbaum DO [email or web address] PCP - General Internal Medicine 12/30/17 04/06/21 Estuardo Baker CNP [address] [place] [address], [address] [place] [address] [email or web address] PCP - General Family Medicine 04/07/21 documented as of this encounter Additional Source Comments The information contained in this document represents components of the legal health record. It is not the complete legal health record.[facility]
--- OUTSIDE RECORDS SUMMARY | 2025-09-13 20:12 | XMS_ITS | Encounter Summary ---
Author Organization [facility] Address [address] [facility] [address] [place] [address] Phone Care Team Providers Care Time Study Statistician Name Role Phone Estuardo Baker CNP Primary Care Provider Reason for Visit * Reason Onset Date Comments Forms & Paperwork 09/09/2025 Encounter Details Date Type Department Care Team (Late st Contact Info) Description 09/09/2025 Telephone [employer] [address] [place] [address] Estuardo Baker CNP [address] [facility], [address] [place] [address] [email or web address] Forms & Paperwork Social History Tobacco Use Types Packs/Day Years [...] 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 Message placed onfax send to Jasmina at pt care home that we did not receive any form from 08/28/25. * John Chandler - 09/09/2025 10:54 AM EST Caroline from the pt's care home called to request any documentation about vaccines the pt has received be faxed to them at [phone]. Caller states that they only have the pt's recent vaccine record. Caller additionally stated that they faxed over a form on 08/28 to be signed and faxed back. Unableto locate in media. Confirmed fax number, and caller stated they will refax. Central Support Microfilmer (Please do not reply to this user; this inbox is not monitored.) Thank you. documented in this encounter Plan of Treatment Upcoming Encounters Date Type Department Care Team (Late st Contact Info) Description 08/07/2025 Procedure Pass [address] [place] [address] 04/21/2026 8:45 AM EDT Appointment [address] [place] [address] Estuardo Baker CNP [address] [place] [address], [address] [place] [address] documented as of this encounter Visit Diagnoses Not on filedocumented in this encounter Additional Health Concerns Assessment Noted Time PHQ-2 Depression Total Score: 0 04/25/20 8:46 PM EDT documented as of this encounter Care Teams Time Study Statistician Relationship Specialty Start Date End Date Estuardo Baker CNP [address] [place] [address], [address] [place] [address] PCP - General Family Medicine 04/07/21 documented as of this encounter Additional Source Comments The information contained in this document represents components of the legal health record. It is not the complete legal health record.[facility]
--- OUTSIDE RECORDS SUMMARY | 2025-09-13 20:12 | XMS_ITS | Encounter Summary ---
Author Organization [facility] Address [address] [facility] [address] [place] [address] Phone Care Team Providers Care Wrap Knitting Machine Operator Name Role Phone Bobby Rosenbaum DO Primary Care Provider [phone] Estuardo Baker CNP Primary Care Provider Encounter Details Date Type Department Care Team (Late st Contact Info) Description 12/30/2017 Ancillary Orders [facility] External Provider Virtual Department [address] [place] [address] Bobby Rosenbaum DO [address] [facility] [place] [address] [place] [address] Dyspnea on exertion Social History Tobacco Use Types Packs/Day Years [...] st Contact Info) Description 08/07/2025 Procedure [address] [place] [address] 04/21/2026 8:45 AM EDT Appointment [address] [place] [address] Estuardo Baker, HOOF TRIMMER [address] [facility], [address] [place] [address] documented as of this encounter Results * Stress Test Exercise (01/06/2018 9:13 AM EDT) Max BP Systolic 168 mmHg [facility] Max BP Diastolic 80 mmHg [facility] Max HR 141 BPM [facility] Resting HR 75 BPM [facility] Peak METS 7.7 METS [facility] Peak HR 141 BPM [facility] Anatomical Region Laterality Modality Heart Other 01/06/2018 8:47 AM EDT 01/06/2018 9:14 AM EDT Narrative 01/06/2018 12:37 PM EDT Patient exercised for 7:31 minutes on a standard joyce protocol achieving 7.7METS and 85% MPHR (141 BPM). The test was terminated due to musculoskeletal fatigue. SUMMARY: 1. RESTING EKG:Normal sinus rhythm 2. EXERCISE EKG: No ekg changes suggestive of ischemia at peak exercise. However, starting at 3 minutes into recovery, horizontal depression in leads V3-V6 @ 0.5mm 3. SYMPTOMS:No chest pain or symptoms concerning for angina 4. PHYSIOLOGY: Normal heart rate and blood pressure response to exercise. Normal functional capacity for age 5. ARRHYTHMIA: None CONCLUSION: Equivocal stress test by ekg criteria. Can not rule out ischemia. Patient has a strong early family history of CAD. We have scheduled her to repeat test with imaging. Cornell Ward NP Response to Stress Patient achieved a peak heart rate of 141 bpm, which is% of their maximum predicted heart rate. us Bobby Rosenbaum DO CV STRESS ORDERABLES Final Resul t documented in this encounter Visit Diagnoses Diagnosis Dyspnea on exertion Other dyspnea and respiratory abnormality Dyspnea on exertion Other dyspnea and respiratory abnormality documented in this encounter Care Teams Wrap Knitting Machine Operator Relationship Specialty Start Date End Date Bobby Rosenbaum DO PCP - General Internal Medicine 12/30/17 04/06/21 Estuardo Baker, NIECY [address] [place] [address], [address] [place] [address] [email or web address] PCP - General Family Medicine 04/07/21 documented as of this encounter Additional Source Comments The information contained in this document represents components of the legal health record. It is not the complete legal health record.[facility]
--- OUTSIDE RECORDS SUMMARY | 2025-09-13 20:12 | XMS_ITS | Encounter Summary ---
Author Organization [facility] Address [address] [facility] [address] [place] [address] Phone Care Team Providers Care Cherry Grower Name Role Phone Bobby Rosenbaum Primary Care Provider [phone] Estuardo Baker CNP Primary Care Provider Encounter Details Date Type Department Care Team (Late st Contact Info) Description 01/12/2018 Ancillary Orders Non-Invasive Cardiology [address] [place] [address] Cornell Ward, ELMER [address] [facility] [address] [place] [address] Abnormal stress test; Family history of early CAD Social History Tobacco Use Types Packs/Day Years [...] Contact Info) Description 08/07/2025 Procedure Pass [address] [place] [address] 04/21/2026 8:45 AM EDT Appointment [address] [place] [address] Estuardo Baker, LINING IRONER 22 [facility], [address] [place] [address] [email or web address] documented as of this encounter Results * NC Stress Result for Nuclear Stress Test (01/12/2018 11:04 AM EDT) Max BP Systolic 180 mmHg [facility] Max BP Diastolic 80 mmHg [facility] Max HR 153 BPM [facility] Resting HR 85 BPM [facility] Resting BP Systolic 148 mmHg [facility] Resting BP Diastolic 88 mmHg [facility] Peak METS 10.1 METS [facility] Peak HR 150 BPM [facility] Anatomical Region Laterality Modality Heart Other 01/12/2018 10:1 2 AM EDT 01/12/2018 11:03 AM EDT Narrative 01/12/2018 1:30 PM EDT Response to Stress Patient achieved a peak heart rate of 150 bpm, which is% of their maximum predicted heart rate. Exercise Stress Test Report: Reason for termination: musculoskeletal fatigue Summary: Resting ECG: SR HR 76 incomplete IVCD and NSSTW Functional capacity: Good Heart rate response to exercise:Appropriate Blood pressure response to exercise: Normal resting-appropriate Chest pain:None Arrhythmias:None ST-T changes:See below Overall impression: Equivocal ETT Conclusion: Patient exercised for 8:01 Minutes on a standard Mir protocol achieving MPHR and METS. Test terminated due to musculoskeletal fatigue Summary: 1. EKG: subtle horizontal downsloping in V3-V6 in early recovery, cannot rule out ischemia 2. Symptoms: No exertional chest pain or symptoms concerning for angina 3. Exercise physiology: Normal heart rate and BP response to exercise. Max HR 153 with normal HR recovery. Max BP 180/80 from baseline BP of 148/88. Good functional capacity for age noted 4. Arrhythmia:None Conclusion: Equivocal ETT. Subtle horizontal downsloping in V3-V6 in early recovery cannot rule out ischemia. Vital signs at baseline at time of discharge from the lab. Nuclear images to follow. EKG reviewed with Dr. Meme Finley NP. Cornell Ward NP CV NM CARDIAC Final Result documented in this encounter Visit Diagnoses Diagnosis Abnormal stress test Other nonspecific abnormal cardiovascular system function study Family history of early CAD Family history of ischemic heart disease Abnormal stress test Other nonspecific abnormal cardiovascular system function study Family history of early CAD Family history of ischemic heart disease documented in this encounter Care Teams Cherry Grower Relationship Specialty Start Date End Date Bobby Rosenbaum DO [email or web address] PCP - General Internal Medicine 12/30/17 04/06/21 Estuardo Baker CNP [address] [place] [address], [address] [place] [address] [email or web address] PCP - General Family Medicine 04/07/21 documented as of this encounter Additional Source Comments The information contained in this document represents components of the legal health record. It is not the complete legal health record.[facility]
--- OUTSIDE RECORDS SUMMARY | 2025-09-13 20:12 | XMS_ITS | Encounter Summary ---
Author Organization [facility] Address [address] [place] [address] [place] [address] Phone Care Team Providers Care Cylinder Press Operator Name Role Phone Bobby Rosenbaum Primary Care Provider [phone] Estuardo Baker CNP Primary Care Provider Encounter Details Date Type Department Care Team (Latest Contact Info) Description 01/09/2020 Transcribe Orders [address] [address] Pito Israel MD [address] [place] [address], [address] [place] [address] [email or web address] Seizure (Primary Dx) Social History Tobacco Use Types [...] st Contact Info) Description 08/07/2025 Procedure Pass [address] [place] [address] 04/21/2026 8:45 AM EDT Appointment [address] [place] [address] Estuardo Baker, RHEOLOGIST 22 [facility], [address] [place] [address] documented as of this encounter Results * (ABNORMAL) Lamotrigine level (01/09/2020 10:14 AM EDT) LAMOTRIGINE 18.7(H) 4.0 - 18.0 mg/L [facility] Blood 01/09/2020 10:1 4 AM EDT 01/09/2020 10:46 AM EDT us Pito Israel MD LAB BLOOD BKR ORDERABLES Fin al Result Performing Organization Address City/State/[facility] Co de Phone Number [address] [address] documented in this encounter Visit Diagnoses Diagnosis Seizure- Primary Other convulsions documented in this encounter Care Teams Cylinder Press Operator Relationship Specialty Start Date End Date Bobby Rosenbaum DO PCP - General Internal Medicine 12/30/17 04/06/21 Estuardo Baker CNP 22 [facility], [address] [place] [address] PCP - General Family Medicine 04/07/21 documented as of this encounter Additional Source Comments The information contained in this document represents components of the legal health record. It is not the complete legal health record.[facility]
--- OUTSIDE RECORDS SUMMARY | 2025-09-13 20:12 | XMS_ITS | Encounter Summary ---
Author Organization [facility] Address [address] [place] [address] Phone Care Team Providers Care Bolt Header Name Role Phone Bobby Rosenbaum DO Primary Care Provider [phone] Etsuardo Baker CNP Primary Care Provider Encounter Details Date Type Department Care Team (Late st Contact Info) Description 11/15/2019 Transcribe Orders [address] [place] [address] Bobby Rosenbaum DO [address] [facility] [place] [address] [place] [address] [email or web address] Dizziness and giddiness (Primary Dx) Social History Tobacco Use Types [...] st Contact Info) Description 08/07/2025 Procedure Pass [address] [place] [address] 04/21/2026 8:45 AM EDT Appointment [address] [place] [address] Estuardo Baker CNP 22 [facility], [address] [place] [address] [email or web address] documented as of this encounter Results * Lamotrigine level (11/15/2019 8:58 AM EST) LAMOTRIGINE 7.7 4.0 - 18.0 mg/L [facility] Blood 11/15/2019 8:58 AM EST 11/15/2019 10:13 AM EST us Bobby Rosenbaum DO LAB BLOOD BKR ORDERABLES Final R [facility] Performing Organization Address City/[facility] Co de Phone Number [address] [address] * Levetiracetam (Keppra) level (11/15/2019 8:58 AM EST) Levetiracetam 19.1 12.0 - 46.0 mcg/mL [facility] Blood 11/15/2019 8:58 AM EST 11/15/2019 10:13 AM EST us Bobby Rosenbaum DO LAB BLOOD BKR ORDERABLES Final R [facility] Performing Organization Address [facility] Co de Phone Number [address] [address] documented in this encounter Visit Diagnoses Diagnosis Dizziness and giddiness- Primary documented in this encounter Care Teams Bolt Header Relationship Specialty Start Date End Date Bobby Rosenbaum DO [email or web address] PCP - General Internal Medicine 12/30/17 04/06/21 Estuardo Baker CNP 22 [facility], [address] [place] [address] PCP - General Family Medicine 04/07/21 documented as of this encounter Additional Source Comments The information contained in this document represents components of the legal health record. It is not the complete legal health record.[facility]
--- OUTSIDE RECORDS SUMMARY | 2025-09-13 20:12 | XMS_ITS | Encounter Summary ---
Author Organization [facility] Address [address] [address] Phone Care Team Providers Care Clicking Machine Operator Name Role Phone Bobby Rosenbaum Primary Care Provider [phone] Estuardo Baker CNP Primary Care Provider Encounter Details Date Type Department Care Team (Late st Contact Info) Description 12/28/2019 Procedure Pass [address] [place] [address] Social History Tobacco Use Types Packs/Day Years [...] st Contact Info) Description 08/07/2025 Procedure Pass [address] [place] [address] 04/21/2026 8:45 AM EDT Appointment [address] [place] [address] Estuardo Baker, NIECY 22 [facility], [address] [place] [address] documented as of this encounter Visit Diagnoses Not on filedocumented in this encounter Care Teams Clicking Machine Operator Relationship Specialty Start Date End Date Bobby Rosenbaum DO [email or web address] PCP - General Internal Medicine 12/30/17 04/06/21 Estuardo Baker CNP [address] [place] [address], [address] [place] [address] [email or web address] PCP - General Family Medicine 04/07/21 documented as of this encounter Additional Source Comments The information contained in this document represents components of the legal health record. It is not the complete legal health record.[facility]
--- OUTSIDE RECORDS SUMMARY | 2025-09-13 20:12 | XMS_ITS | Encounter Summary ---
Author Organization [facility] Address [address] [facility] [address] [place] [address] Phone Care Team Providers Care Bingo Floater Name Role Phone Estuardo Baker CNP Primary Care Provider Reason for Visit * Reason Onset Date Comments Medication Refill 09/12/2025 Encounter Details Date Type Department Care Team (Late st Contact Info) Description 09/12/2025 Refill [facility] Medicine [address] [place] [address] Estuardo Baker CNP 22 [facility], [address] [place] [address] [email or web address] Medication Refill Social History Tobacco Use Types Packs/Day Years [...] Industry Job Start Date Job End Date [employer] Not on file Not on jackie e Not on file documented as of this encounter Progress Notes * Belia Cotton - 09/13/2025 8:23 AM EST Rx Care Gap Status - Instructions for Clinical Staff (prescriber discretion applies): > Mismatch review guide > At least one request does not meet full criteria. Specifics below. > No future appt: Please schedule if appropriate. > Labs due: Please remind patient. > No new orders needed. Labs due for pended Rx Requests: Lipid panel Other labs due based on Medication List: LFTs Visit Info Last visit: 05/02/2025 Estuardo Baker, STAMPING DIE MAKER - Family Medicine [facility] > Requested f/u: Return in about 1 year (around 05/02/2026) for Annual physical. Upcoming visit: None ACTIONS TAKEN BY Belia CottonMAC - Labs needed - Teed up orders and/or reminded pt. Cholesterol Medication Rx Protocol - lovastatin Criteria not met; renew for up to 3 months. (unless patient is on high intensity statin, in which case LDL level may not be needed at provider discretion) Visit in the past 14 months: Yes Clinical criteria: - Lipid panel within past year: None (has active order) Lab Results Component Value Date LDL NOT CALCULATED 04/19/2024 HDL 54 04/19/2024 CARDIAC RISK RATIO 4.2 04/19/2024 TRIGLYCERIDES 403 (H) 04/19/2024 CHOLESTEROL 228 04/19/2024 No Health Maintenance Labs Overdue * Basilio Holliday - 09/12/2025 8:25 AM EST Pt Dag Coater called in to follow up on a refill request, asking for the instructions to be changed to the morning instead of the evening. see encounter from 08/28. lovastatin (MEVACOR) 10 MG tablet. Central Support Crime Lab Analyst (Please do not reply to this user; this inbox is not monitored.) Thank you. documented in this encounter Plan of Treatment Upcoming Encounters Date Type Department Care Team (Late st Contact Info) Description 08/07/2025 Procedure Pass [address] [place] [address] 04/21/2026 8:45 AM EDT Appointment [address] [place] [address] Estuardo Baker CNP [address] [place] [address], [address] [place] [address] [email or web address] documented as of this encounter Visit Diagnoses Not on filedocumented in this encounter Additional Health Concerns Assessment Noted Time PHQ-2 Depression Total Score: 0 04/25/20 25 8:46 PM EDT documented as of this encounter Care Teams Bingo Floater Relationship Specialty Start Date End Date Estuardo Baker CNP 22 [facility], [address] [place] [address] [email or web address] PCP - General Family Medicine 04/07/21 documented as of this encounter Additional Source Comments The information contained in this document represents components of the legal health record. It is not the complete legal health record.[facility]
[2025-09-13 20:15] LABS: INTERNATIONAL NORM RATIO 1.1 (0.9-1.1); Prothrombin Time 13.3 SEC (11.2-13.5)
[2025-09-13] MEDS: levETIRAcetam 3,000 MG in 0.9 % Sodium Chloride 100 ML 520 MG IV (20:16)
[2025-09-13 20:18] LABS: Partial Thromboplastin Time 31.7 SEC (26.7-34.1)
[2025-09-13 20:19] LABS: Stroke Lab Use COMPLETE
[2025-09-13 20:28] LABS: Anion Gap 14 (12-20); Blood Urea Nitrogen 17 mg/dL (9-16); Calcium 9.6 mg/dL (8.4-10.2); Carbon Dioxide 25 mmol/L (22-29); Chloride 105 mmol/L (96-108); Cholesterol 233 mg/dL (<200); Creatinine Clr Calc Pharmacy 35.8; Estimated Glomerular Filt Rate > 60; HDL Cholesterol 47 mg/dL (>40); Potassium 4.0 mmol/L (3.3-5.1); Sodium 140 mmol/L (135-145); Triglycerides 254 mg/dL (<150)
[2025-09-13 20:35] VITALS: BP 187/110; PULSE 80; O2SAT 97
[2025-09-13 20:37] VITALS: BP 133/76; PULSE 71; RESP 19; TEMP 36.4; O2SAT 94
[2025-09-13 21:23] LABS: Troponin-I High Sensitivity < 2.7 ng/L (<3.5-17.0)
[2025-09-13 21:40] VITALS: BP 155/80; PULSE 66; RESP 16; TEMP 36.4; O2SAT 96
[2025-09-16 09:33] LABS: Glucose, Whole Blood 107 mg/dL (60-115)
[2025-09-16 09:37] LABS: INR Whole Blood 1.0 (0.9-1.1); Prothrombin Time Whole Blood 11.8 sec (11.1-13.5)
[2025-09-17 11:04] LABS: Levetiracetam Keppra 29.4 mcg/mL (10.0-40.0)
== END 2025-09-13 21:42 | disposition home or self-care (01) ==
PROVIDERS: Emergency Provider Emergency Medicine; PCP Nurse Practitioner Primary Care
DX: G83.84 Todd's paralysis (postepileptic) (principal); I71.20 Thoracic aortic aneurysm, without rupture, unspecified; R47.1 Dysarthria and anarthria; R94.31 Abnormal electrocardiogram [ECG] [EKG]; R29.810 Facial weakness; R47.01 Aphasia; R40.2410 Glasgow coma scale score 13-15, unspecified time; R11.0 Nausea; Z79.899 Other long term (current) drug therapy
CPT/HCPCS: 36415; 70450; 70496; 70498; 71045; 80048; 80061; 80177; 82947; 84484; 85025; 85610; 85730; 93005; 96365; 96366; 96375; 99284; 99291; J1953; J3360; Q9967

== ENCOUNTER → 2025-09-13 19:23 | Outpatient (BNV) | payer MEDICARE, MEDICAID, SELFPAY | PROVIDERS: Emergency Provider Emergency Medicine; PCP Nurse Practitioner Primary Care; Visit Provider Internal Medicine | DX: R94.31 Abnormal electrocardiogram [ECG] [EKG] (principal); I63.9 Cerebral infarction, unspecified | CPT/HCPCS: 93010 ==

== ENCOUNTER → 2025-09-13 19:23 | Outpatient (BNV) | payer MEDICARE, MEDICAID, SELFPAY | PROVIDERS: Emergency Provider Emergency Medicine; Visit Provider Radiology Diagnostic Radiology | DX: G81.92 Hemiplegia, unspecified affecting left dominant side (principal); R29.810 Facial weakness; R53.1 Weakness | CPT/HCPCS: 70450; 70496; 70498; 71045 ==